=== PATIENT | male | born 1950 | race African-American/Black ===

== ENCOUNTER 2017-10-31 08:24 | Emergency (ER) | payer MEDICARE ==
[~2017-10-31] VITALS: Ht 177.8 cm; Wt 132.0 kg
[2017-10-31] MEDS ORDERED: SODIUM CHLORIDE 0.9% 1,000 ML IV ONE (09:00)
[2017-10-31 09:06] LABS: BASOPHILS % 1.2 % (0.0-2.0); HEMOGLOBIN. 10.7 g/dL (14.0-18.0); LYMPHOCYTES % 24.3 % (20.0-50.0); MEAN CORPUSCULAR HEMOGLOBIN 30.1 pg (28.0-32.0); MEAN CORPUSCULAR VOLUME 90.1 fL (80.0-94.0); MEAN PLATELET VOLUME 9.3 fl (7.4-10.4); MONOCYTES % 10.4 % (2.0-8.0); NEUTROPHILS % 63.1 % (40.0-76.0); PLATELET 224 x1000/uL (130-400); RED BLOOD CELL COUNT 3.55 mill/uL (4.7-6.1)
[2017-10-31 09:08] LABS: CHLORIDE 104 mEq/L (98-107)
[2017-10-31 09:10] LABS: INR 1.2; PROTHROMBIN TIME 12.3 sec (9.4-11.6)
[2017-10-31 09:13] LABS: ETHANOL BLOOD 15 mg/dL
[2017-10-31 09:28] VITALS: BP 95/55
== END 2017-10-31 09:37 | disposition left against medical advice (07) ==
LOC: ER 08:32
DX: G93.40 Encephalopathy, unspecified (principal); F17.200 Nicotine dependence, unspecified, uncomplicated; J32.3 Chronic sphenoidal sinusitis; I49.1 Atrial premature depolarization
CPT/HCPCS: 36415; 70450; 80053; 84484; 85025; 85610; 93005; 99285; G0482; J7030

== ENCOUNTER 2018-05-03 01:54 | Emergency (ER) | payer MEDICARE ==
[~2018-05-03] VITALS: Ht 180.3 cm; Wt 104.0 kg
[2018-05-03 01:55] VITALS: BP 140/84
[2018-05-03] MEDS ORDERED: ACETAMINOPHEN 325MG TABLET PO ONE (11:00)
== END 2018-05-03 12:02 | disposition home or self-care (01) ==
LOC: ER 01:54
DX: M54.9 Dorsalgia, unspecified (principal); M25.572 Pain in left ankle and joints of left foot; M25.571 Pain in right ankle and joints of right foot; I10 Essential (primary) hypertension
CPT/HCPCS: 99283

== ENCOUNTER 2018-05-03 23:33 | Emergency (ER) | payer MEDICARE, OTHER | END 2018-05-04 03:44 | disposition left against medical advice (07) | LOC: ER 23:33 | DX: Z53.21 Procedure and treatment not carried out due to patient leaving prior to being seen by health care provider (principal) ==

== ENCOUNTER 2018-06-19 07:31 | Inpatient (IN) | payer MEDICARE, OTHER ==
[~2018-06-19] VITALS: Ht 177.8 cm; Wt 83.9 kg
[2018-06-19 09:54] LABS: CLARITY URINE CLEAR (CLEAR); COLOR URINE YELLOW (YELLOW); KETONES URINE TRACE (NEGATIVE); LEUKOCYTE ESTERASE URINE NEGATIVE (NEGATIVE); NITRITE URINE NEGATIVE (NEGATIVE); OCCULT BLOOD URINE NEGATIVE (NEGATIVE); PH URINE 5.5 (4.5-8.0); PROTEIN URINE NEGATIVE (NEGATIVE); SPECIFIC GRAVITY URINE 1.014 (1.005-1.030)
[2018-06-19 10:11] LABS: BASOPHILS % 1.3 % (0.0-2.0); EOSINOPHILS % 2.5 % (0.0-5.0); HEMATOCRIT. 32.3 % (42.0-52.0); HEMOGLOBIN. 10.4 g/dL (14.0-18.0); MEAN CORPUSCULAR HEMOGLOBIN 27.9 pg (28.0-32.0); MEAN CORPUSCULAR VOLUME 86.6 fL (80.0-94.0); MEAN PLATELET VOLUME 9.3 fl (7.4-10.4); MONOCYTES % 11.2 % (2.0-8.0); PLATELET 203 x1000/uL (130-400); RED BLOOD CELL COUNT 3.72 mill/uL (4.7-6.1); RED CELL DISTRIBUTION WIDTH 17.5 % (11.6-14.6)
[2018-06-19 10:18] LABS: CHLORIDE 106 mEq/L (98-107)
[2018-06-19 10:24] LABS: ETHANOL BLOOD < 10 mg/dL
[2018-06-19 10:25] LABS: D-DIMER 0.9 mg/L FEU (<0.50); INR 1.1; PARTIAL THROMBOPLASTIN TIME 33.1 sec (23.4-31.0); PROTHROMBIN TIME 11.5 sec (9.1-11.1)
[2018-06-19 11:23] LABS: METHADONE URINE SCREEN NEGATIVE (NEGATIVE)
[2018-06-19 11:24] LABS: CANNABINOID URINE SCREEN PRESUMTIVE POSITIVE (NEGATIVE); OPIATES URINE SCREEN NEGATIVE (NEGATIVE)
[2018-06-19 11:25] LABS: PHENCYCLIDINE URINE SCREEN NEGATIVE (NEGATIVE)
[2018-06-19 11:28] LABS: *COCAINE SCREEN URINE NEGATIVE (NEGATIVE)
[2018-06-19 11:31] LABS: *AMPHETAMINES SCREEN URINE NEGATIVE (NEGATIVE); *BARBITURATES SCREEN URINE NEGATIVE (NEGATIVE)
[2018-06-19 11:32] LABS: *BENZODIAZEPINES SCREEN URINE NEGATIVE (NEGATIVE)
[2018-06-19] MEDS ORDERED: CLONIDINE 0.1MG TABLET PO PRN (12:45)
[2018-06-19] MEDS ORDERED: NITROGLYCERIN 0.4MG TABLET SL SL PRN (12:45)
[2018-06-19] MEDS ORDERED: ZOLPIDEM TARTRATE 5MG TABLET PO PRN (12:45)
[2018-06-19] MEDS ORDERED: ACETAMINOPHEN 325MG TABLET PO PRN (12:45)
[2018-06-19] MEDS ORDERED: NA PHOS,M-B/NA PHOS,DI-BA ENEMA 118ML PR PRN (12:45)
[2018-06-19] MEDS ORDERED: MAGNESIUM/ALUMINUM HYDROXIDE/SIMETHICONE 30ML UDC PO PRN (12:45)
[2018-06-19] MEDS ORDERED: IPRATROPIUM/ALBUTEROL 0.5-3(2.5)MG/3ML NEB INH PRN (12:45)
[2018-06-19] MEDS ORDERED: KETOROLAC 15MG/ML VIAL IV PRN (12:45)
[2018-06-19] MEDS ORDERED: ONDANSETRON HCL 4MG/2ML INJ IV PRN (12:45)
[2018-06-19] MEDS ORDERED: DOCUSATE SODIUM 100MG CAPSULE PO PRN (12:45)
[2018-06-19 21:30] VITALS: BP 128/74
[2018-06-19 22:45] VITALS: BP 128/74
[2018-06-20] VITALS (7 sets, daily range): BP systolic 84–119; BP diastolic 48–73
[2018-06-20] MEDS ORDERED: LEVOFLOXACIN 500MG PREMIX 100 ML IV SCH
[2018-06-20 00:41] LABS: CREATINE KINASE MB FRACTION 2.5 ng/mL (0.5-3.6)
[2018-06-20] MEDS ORDERED: ATOR-2 PO (02:09)
[2018-06-20] MEDS ORDERED: UREA227C4 TP (02:09)
[2018-06-20] MEDS ORDERED: CHOL100034 PO (02:09)
[2018-06-20] MEDS ORDERED: ACET120S38 PO (02:09)
[2018-06-20] MEDS ORDERED: MULT-25 PO (02:09)
[2018-06-20] MEDS ORDERED: QUET400T11 PO (02:09)
[2018-06-20] MEDS ORDERED: OMEP20CA10 PO (02:09)
[2018-06-20] MEDS ORDERED: PNEUMOCOCCAL 23-VAL P-SAC VAC 0.5 ML IM ONE (08:00)
[2018-06-20] MEDS: ASCORBIC ACID 500 MG TABLET PO SCH ×2 (09:56→21:45)
[2018-06-20] MEDS: FAMOTIDINE 20MG TABLET PO SCH ×2 (09:56→21:45)
[2018-06-20] MEDS: ASPIRIN 325MG EC TABLET PO SCH (09:56)
[2018-06-20] MEDS ORDERED: INFLUENZA VIRUS VACCINE(AFLURIA) 0.5ML SYR IM ONE (10:00)
[2018-06-20] MEDS: ENOXAPARIN 40MG/0.4ML SYR SUBCUT SCH (13:39)
[2018-06-21] VITALS: BP 119/62
[2018-06-21] MEDS ORDERED: LEVOFLOXACIN 500MG PREMIX 100 ML IV SCH
[2018-06-21 04:00] VITALS: BP 110/68
[2018-06-21] MEDS: LEVOFLOXACIN 500MG PREMIX 100 ML IV SCH (05:39)
[2018-06-21 08:00] VITALS: BP 99/50
[2018-06-21] MEDS: ENOXAPARIN 40MG/0.4ML SYR SUBCUT SCH (09:12)
[2018-06-21] MEDS: ASPIRIN 325MG EC TABLET PO SCH (09:12)
[2018-06-21] MEDS: FAMOTIDINE 20MG TABLET PO SCH ×2 (09:12→20:30)
[2018-06-21] MEDS: ASCORBIC ACID 500 MG TABLET PO SCH ×2 (09:12→20:30)
[2018-06-21 12:00] VITALS: BP 100/54
[2018-06-21 20:00] VITALS: BP 101/64
[2018-06-22 00:27] VITALS: BP 118/70
[2018-06-22 04:00] VITALS: BP_SYST 113; BP_SYST 93; BP_DIAS 54; BP_DIAS 66
[2018-06-22] MEDS: LEVOFLOXACIN 500MG PREMIX 100 ML IV SCH (05:42)
[2018-06-22 08:00] VITALS: BP 109/59
[2018-06-22] MEDS: ASPIRIN 325MG EC TABLET PO SCH (08:57)
[2018-06-22] MEDS: FAMOTIDINE 20MG TABLET PO SCH (08:57)
[2018-06-22] MEDS: ASCORBIC ACID 500 MG TABLET PO SCH (08:57)
[2018-06-22] MEDS: ENOXAPARIN 40MG/0.4ML SYR SUBCUT SCH (08:59)
[2018-06-22 12:00] VITALS: BP_SYST 108; BP_SYST 115; BP_DIAS 58; BP_DIAS 78
[2018-06-22 14:37] VITALS: BP 115/78
== END 2018-06-22 15:25 | disposition home or self-care (01) | DRG 689 ==
LOC: ER 07:31 → 7WST 11:55 → SUPCPDRO 12:40 → ENRESERV 19:52
PROVIDERS: ADMIT Internal Medicine; ATTEND Internal Medicine
DX: N39.0 Urinary tract infection, site not specified (principal); G92 Toxic encephalopathy; E44.0 Moderate protein-calorie malnutrition; E83.51 Hypocalcemia; I10 Essential (primary) hypertension; Z68.26 Body mass index [BMI] 26.0-26.9, adult
CPT/HCPCS: 36415; 70551; 71045; 80061; 80305; 82550; 82553; 82962; 83036; 83605; 83735; 83880; 84484; 85379; 87493; 90686; 90732; 93005; 93306; 93970; 96365; 96372; 99285; G0482; J1650; J1956; J7040; J7050